=== PATIENT | male | born 1975 | race Two or more races ===

== ENCOUNTER 2018-05-14 09:46 | Emergency (ER) | payer OTHER ==
[~2018-05-14] VITALS: Ht 154.9 cm; Wt 90.7 kg
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
[2018-05-14 11:44] VITALS: BP 150/91
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
== END 2018-05-14 11:44 | disposition home or self-care (01) ==
LOC: ER 09:46
DX: S02.2XXA Fracture of nasal bones, initial encounter for closed fracture (principal); V49.88XA Car occupant (driver) (passenger) injured in other specified transport accidents, initial encounter; Y93.89 Activity, other specified; Y92.488 Other paved roadways as the place of occurrence of the external cause; Y99.8 Other external cause status
CPT/HCPCS: 70450; 70486; 99284

== ENCOUNTER → 2018-12-05 | Outpatient (CLI) | payer OTHER ==
--- NOTE | 2018-12-05 11:09 | CARD ---
MR#: [id number] Date of Study: 12/05/2018 Ordering Physician: NELLIE GIBSON, Referring Physician: NELLIE GIBSON, Tech: Marisol Khan [facility] APPROVED REPORT EXAM: Two-dimensional and M-mode echocardiogram with Doppler and color Doppler. Other Information Quality : Technically LimitedHR: 90bpm Rhythm : NSRTechnically limited study due to body habitus. INDICATION Chest Pain 2D DIMENSIONS RVDd2.9 (2.9-3.5cm)Left Atrium(2D)3.0 (1.6-4.0cm) IVSd1.4 (0.7-1.1cm)Aortic Root(2D)3.2 (2.0-3.7cm) LVDd4.2 (3.9-5.9cm)LVOT Diameter2.1 (1.8-2.4cm) PWd1.2 (0.7-1.1cm)LVDs3.0 (2.5-4.0cm) FS (%) 29.2 %SV45.5 ml M-Mode DIMENSIONS Left Atrium(MM)3.84 (2.5-4.0cm)Aortic Root3.43 (2.2-3.7cm) Aortic Valve AoV Peak Pierre.119.8cm/sAoV VTI24.1cm AO Peak GR.5.7mmHgLVOT Peak Pierre.113.0cm/s AO Mean GR.4mmHgAVA (VMAX)3.37cm2 YAW (VTI)3.40cm2 Mitral Valve MV E Dnhijesf61.0cm/sMV DECEL [id number] MV A Tjgtfmhk26.3cm/sE/A Ratio1.2 MV A [id number] Pulmonary Valve PV Peak Vzmazcob422.8cm/s LEFT VENTRICLE The left ventricle is normal size. There is mild concentric left ventricular hypertrophy. The left ve ntricular systolic function is normal and the ejection fraction is within normal range. The Ejection Fraction is 55-60%. There is normal LV segmental wall motion. RIGHT VENTRICLE The right ventricle is normal size. There is normal right ventricular wall thickness. The right ventr icular systolic function is normal. ATRIA The left atrium size is normal. The right atrium size is normal. The interatrial septum is intact wit h no evidence for an atrial septal defect or patent foramen ovale as noted on 2-D or Doppler imaging. AORTIC VALVE The aortic valve is normal in structure and function. The aortic valve is trileaflet. Doppler and Col or Flow revealed no significant aortic regurgitation. There is no significant aortic valvular stenosi s. There is no aortic valvular vegetation. MITRAL VALVE The mitral valve is normal in structure and function. There is no evidence of mitral valve prolapse. There is no mitral valve stenosis. Doppler and Color Flow revealed no mitral valve regurgitation note d. TRICUSPID VALVE The tricuspid valve is normal in structure and function. Doppler and Color Flow revealed trace tricus pid regurgitation. There is no tricuspid valve prolapse or vegetation. There is no tricuspid valve st enosis. PULMONIC VALVE The pulmonic valve is not well visualized. GREAT VESSELS The aortic root is normal in size. The ascending aorta is normal in size. The IVC was not visualized. PERICARDIAL EFFUSION There is no evidence of significant pericardial effusion. Critical Notification Critical Value: No <Conclusion> The left ventricle is normal size. The left ventricular systolic function is normal and the ejection fraction is within normal range. The Ejection Fraction is 55-60%. There is mild concentric left ventricular hypertrophy. There is no significant aortic valvular stenosis. Doppler and Color Flow revealed no significant aortic regurgitation. Doppler and Color Flow revealed no mitral valve regurgitation noted. Doppler and Color Flow revealed trace tricuspid regurgitation. Signed by : Luis Antonio Nice MD Electronically Approved : 12/05/2018 11:09:04
== END | disposition home or self-care (01) ==
LOC: ECHO 09:00
PROVIDERS: ATTEND Internal Medicine Cardiovascular Disease
DX: I51.7 Cardiomegaly (principal)
CPT/HCPCS: 93306

== ENCOUNTER → 2018-12-13 | Outpatient (CLI) | payer OTHER ==
--- NOTE | 2018-12-13 17:57 | RAD ---
CHEST PA LATERAL Clinical indications: Cough for 3 months COMPARISON: None available. Findings: No acute lung infiltrate or pleural effusion or pulmonary edema or lung mass or pneumothorax is seen. The heart size, pulmonary vasculature, mediastinum and both [place] are unremarkable. The osseous structures appear intact. Impression: No acute radiographic abnormality is seen. Electronically signed by: Arthur Ruiz MD (12/13/2018 5:55 PM) [place] [id number]
== END | disposition home or self-care (01) ==
LOC: RAD 11:56
PROVIDERS: ATTEND Internal Medicine Critical Care Medicine
DX: R05 Cough (principal)
CPT/HCPCS: 71046

== ENCOUNTER 2019-08-02 21:19 | Emergency (ER) | payer SELFPAY ==
[~2019-08-02] VITALS: Ht 165.1 cm; Wt 104.3 kg
[2019-08-03 00:35] VITALS: BP 167/80
[2019-08-03] MEDS ORDERED: CLOT15CR5 TP (01:22)
--- NOTE | 2019-08-03 01:23 | PHYS DOC ---
Past Medical History Past Medical History: No Pertinent History (AMMY BRISENO APRN) Past Surgical History: No Surgical History (AMMY BRISENO APRN) Alcohol Use: Occasionally Drug Use: None (AMMY BRISENO APRN) Attending Signature I have participated in the care of this patient and I have reviewed and agree with all pertinent clinical information above including history, exam, and recommendations. (JASSI GUERRIER MD) Adult General Chief Complaint Chief Complaint: FOOT INJURY PAIN HPI HPI Patient is a 44 year old male who reports he had been walking at home 3 days ago, barefoot, when he stepped on a screw that was in a board. Patient reports he has had some continued pain, and feels like there was still something inside the bottom of his foot, mid foot. States he has been able to walk on it, just has little discomfort. States he has no some cracking in his left foot, which he does not know the cause of that is. States he has not tried putting medications on his feet, particularly any medications. Denies any recent fever. Does state he does not have any idea when his last tetanus shot was. (AMMY BRISENO APRN) Review of Systems Review of Systems Constitutional: Denies fever or chills [] Eyes: Denies change in visual acuity, redness, or eye pain [] Cardiovascular: No additional information not addressed in HPI [] Musculoskeletal: Denies back pain or joint pain complains of pain to bottom of right foot.[] Integument: Denies rash or skin lesions complains of cracking to bottom of left foot, near heel[] Neurologic: Denies headache, focal weakness or sensory changes [] Endocrine: Denies polyuria or polydipsia [] All other systems were reviewed and found to be within normal limits, except as documented in this note. (AMMY BRISENO APRN) Current Medications Current Medications Current Medications Medications (Trade) Dose Ordered Sig/Toni Start Time Stop Time Status Last Admin Dose Admin Diphtheria/ Tetanus/Acell Pertussis (Boostrix) 0.5 ml ONCE ONCE 08/03/19 01:30 08/03/19 01:31 DC 08/03/19 01:38 0.5 ML Ibuprofen (Motrin) 600 mg 1X ONCE 08/03/19 01:30 08/03/19 01:31 DC 08/03/19 01:36 600 MG (FAREED,JASSI W MD) Allergies Allergies Allergies Coded Allergies Type Severity Reaction Last Updated Verified No Known Drug Allergies 08/03/19 No (JASSI GUERRIER MD) Physical Exam Physical Exam Constitutional: Well developed, well nourished, no acute distress, non-toxic appearance. Conversation in no apparent distress or discomfort [] HENT: Normocephalic, atraumatic, bilateral external ears normal, oropharynx moist, no oral exudates, nose normal. [] Skin: Warm, dry, no erythema, no rash. Puncture noted to mid foot of right foot, with scab in place. Is cracking noted to posterior heels of bilateral feet, no active bleeding. Minimal tenderness noted. No foreign bodies noted,[] Extremities: No tenderness, no cyanosis, no clubbing, ROM intact, no edema. Full ROM to feet noted[] Neurologic: Alert and oriented X 3, normal motor function, normal sensory function, no focal deficits noted. [] Psychologic: Affect normal, judgement normal, mood normal. [] (AMMY BRISENO APRN) Current Patient Data Vital Signs Vital Signs Date Time Temp Pulse Resp B/P (MAP) Pulse Ox O2 Delivery O2 Flow Rate FiO2 08/03/19 00:35 98.1 89 18 167/80 (109) 99 Room Air 98.1 (JASSI GUERRIER MD) EKG EKG [] (AMMY BRISENO APRN) Radiology/Procedures Radiology/Procedures X ray of foot with no noted fracture or foreign body mid-foot, per Dr Guerrier, does note small foreign body potentially at distal end of right foot. [] (AMMY BRISENO APRN) Course & Med Decision Making Course & Med Decision Making Pertinent Labs and Imaging studies reviewed. (See chart for details) [Discussed findigns without noted foreign body in foot. Discussed cracking of feet likely due to his use of alcohol and peroxide, plus walking in home with bleach on the floors. Advised patient to not use bleach on his feet. Also advise cracking likely resulting from tinea widespread to feet Will provide Rx for antifungal. Patient to follow up with Dr Jaime for tinea to great toe left foot. Will update tetanus here] (AMMY BRISENO APRN) Dragon Disclaimer Dragon Disclaimer This electronic medical record was generated, in whole or in part, using a voice recognition dictation system. (AMMY BRISENO APRN) Departure Departure Impression: Primary Impression: Puncture wound of foot without foreign body Additional Impression: Tinea pedis of both feet Disposition: HOME, SELF-CARE Condition: GOOD Referrals: DEANDRE JAIME MD (PCP) Patient Instructions: Athlete's Foot Additional Instructions: As we discussed, do not put bleach on your feet. Do not put alcohol and peroxide together on your feet. The cracking is likely related to a fungus on your feet, and it is worsened by using caustic products like bleach and alcohol. Try to wear your shoes at home to prevent stepping on anything else. Scripts Clotrimazole/Betamethasone Dip (CLOTRIMAZOLE-BETAMETHASONE CRM) 15 Gm Cream..g. 1 ALAN TP BID, #30 GM 1 Refill Prov: AMMY BRISENO APRN 08/03/19 Problem Qualifiers Primary Impression: Puncture wound of foot without foreign body Encounter type: initial encounter Laterality: right Qualified Codes: S91.331A - Puncture wound without foreign body, right foot, initial encounter AMMY BRISENO APRN Aug 03, 2019 01:22 JASSI GUERRIER MD Aug 03, 2019 02:40
[2019-08-03] MEDS ORDERED: IBUPROFEN 200 MG TABLET. PO ONE (01:30)
[2019-08-03] MEDS ORDERED: DIPHTH,PERTUSS(ACELL),TET TOX 0.5 ML DISP.SYRIN. VAX IM ONE (01:30)
--- NOTE | 2019-08-03 04:29 | RAD ---
Exam: Right foot 2 views INDICATION: Puncture wound TECHNIQUE: Frontal and lateral views the right foot Comparisons: None FINDINGS: Soft tissue swelling surrounding the right foot. No acute osseous abnormality Joint spaces are well-maintained. 2 mm hyperdensity seen best on lateral view underlying the digits. IMPRESSION: Soft tissue swelling at the level of the forefoot without underlying osseous abnormality. There is a 2 mm hyperdense focus seen along the plantar aspect of the digits on lateral view, may relate to foreign body. Correlate with physical exam. Electronically signed by: Elisabet Lewis MD (08/03/2019 4:26 AM) [facility]
== END 2019-08-03 01:40 | disposition home or self-care (01) ==
LOC: ER 21:19
DX: S91.331A Puncture wound without foreign body, right foot, initial encounter (principal); B35.3 Tinea pedis; W26.8XXA Contact with other sharp object(s), not elsewhere classified, initial encounter; Y93.89 Activity, other specified; Y92.89 Other specified places as the place of occurrence of the external cause; Y99.8 Other external cause status
CPT/HCPCS: 73620; 90471; 90715; 99284

== ENCOUNTER 2020-01-16 16:44 | Emergency (ER) | payer SELFPAY ==
[~2020-01-16] VITALS: Ht 165.1 cm; Wt 113.6 kg
[~2020-01-16 16:44] MED LIST: CLOT15CR5 TP
[2020-01-16 17:41] LABS: BILIRUBIN,URINE NEGATIVE (NEG); CLARITY,URINE CLOUDY; COLOR,URINE YELLOW; NITRITE,URINE NEGATIVE (NEG); PROTEIN,URINE NEGATIVE (NEG-TRACE)
[2020-01-16] MEDS ORDERED: IV NORMAL SALINE 1000ML BAG 1,000 ML IV ONE (17:45)
[2020-01-16 18:01] LABS: BASO # 0.1 x10^3/uL (0.0-0.2); BASO % 1 % (0-3); EOS # 0.1 x10^3/uL (0.0-0.7); EOS % 1 % (0-3); HEMATOCRIT 41.6 % (39.0-53.0); HEMOGLOBIN 14.8 g/dL (13.0-17.5); LYMPH # 1.8 x10^3/uL (1.0-4.8); LYMPH % 17 % (24-48); MEAN CORPUSCULAR HEMOGLOBIN 31 pg (25-35); MEAN CORPUSCULAR HGB CONC 36 g/dL (31-37); MEAN CORPUSCULAR VOLUME 87 fL (79-100); MONO # 0.8 x10^3/uL (0.0-1.1); MONO % 7 % (0-9); NEUT # 8.1 x10^3/uL (1.8-7.7); NEUT % 74 % (31-73); PLATELET COUNT 207 x10^3/uL (140-400); RED BLOOD COUNT 4.78 x10^6/uL (4.30-5.70); RED CELL DISTRIBUTION WIDTH 13.2 % (11.5-14.5); WHITE BLOOD COUNT 10.9 x10^3/uL (4.0-11.0)
[2020-01-16 18:05] LABS: BACTERIA,URINE 0 /HPF (0-FEW); RBC,URINE OCC /HPF (0-2)
[2020-01-16 18:09] LABS: CALCIUM 8.6 mg/dL (8.5-10.1); CREATININE 1.1 mg/dL (0.7-1.3); GFR 72.7; POTASSIUM 4.2 mmol/L (3.5-5.1)
[2020-01-16 18:15] LABS: ALBUMIN 3.4 g/dL (3.4-5.0); ALBUMIN/GLOBULIN RATIO 0.9 (1.0-1.7); TOTAL BILIRUBIN 1.1 mg/dL (0.2-1.0); TOTAL PROTEIN 7.1 g/dL (6.4-8.2)
[2020-01-16] MEDS ORDERED: cefTRIAXone IM 250 MG VIAL IM ONE (18:15)
[2020-01-16] MEDS ORDERED: KETOROLAC 15 MG/ML VIAL. IVP ONE (18:15)
[2020-01-16] MEDS ORDERED: AZITHROMYCIN 250 MG TABLET. PO ONE (18:15)
--- NOTE | 2020-01-16 18:42 | PHYS DOC ---
Past Medical History Past Medical History: TB Additional Past Medical Histor: TREATED FOR TB 14 YRS AGO (DEANDRE GLOVER DO) Past Surgical History: No Surgical History (DEANDRE GLOVER DO) Smoking Status: Never Smoker Alcohol Use: Rarely Drug Use: None (DEANDRE GLOVER DO) General Adult EDM: Chief Complaint: TESTICULAR PAIN OR INJURY HPI: HPI: Patient is a 44 year old male presents with report of 1 week history of progressive pain and swelling to lesion at base of penis and to scrotum. Reports he recently shaved his pubic area and now has several pustules. Reports concern that it might be an parasite infection because he also found some "worms" in his laundry basket and down in his basement. Denies penile discharge. Denies fever/chills. Denies known exposure to STDs. (DEANDRE GLOVER DO) Review of Systems: Review of Systems: Constitutional: Denies fever or chills Eyes: Denies redness or eye pain HENT: Denies nasal congestion or sore throat Respiratory: Denies cough or shortness of breath Cardiovascular: Denies chest pain or palpitations GI: Denies abdominal pain, nausea, or vomiting : Denies dysuria or penile discharge; reports penile and scrotal swelling and pain Musculoskeletal: Denies back pain or joint pain Integument: Reports pustular rash to pubic area and skin lesion to base of penis with swelling Neurologic: Denies headache, focal weakness or sensory changes Complete systems were reviewed and found to be within normal limits, except as documented in this note. (DEANDRE GLOVER DO) Current Medications: Current Medications Medications (Trade) Dose Ordered Sig/Otni Start Time Stop Time Status Last Admin Dose Admin Azithromycin (Zithromax) 1,000 mg 1X ONCE 01/16/20 18:15 01/16/20 18:16 DC 01/16/20 18:06 1,000 MG Ceftriaxone Sodium (Rocephin Im) 250 mg 1X ONCE 01/16/20 18:15 01/16/20 18:16 DC 01/16/20 18:05 250 MG Ketorolac Tromethamine (Toradol 15mg Vial) 15 mg 1X ONCE 01/16/20 18:15 01/16/20 18:16 DC 01/16/20 18:03 15 MG Sodium Chloride 1,000 ml @ 1,000 mls/hr 1X ONCE 01/16/20 17:45 01/16/20 18:44 01/16/20 18:05 1,000 MLS/HR (DEANDRE LGOVER DO) Allergies: Allergies: Allergies Coded Allergies Type Severity Reaction Last Updated Verified No Known Drug Allergies 08/03/19 No (DEANDRE GLOVER DO) Physical Exam: PE: Constitutional: Well developed, well nourished, uncomfortable, non-toxic appearance HENT: Normocephalic, atraumatic Eyes: Conjunctiva normal, no discharge Neck: Normal range of motion, no tenderness, supple Lungs & Thorax: No respiratory distress, equal chest rise and fall Abdomen: Soft, no tenderness Skin: Warm, dry, no erythema, scattered pustular rash to pubic region which appears consistent for folliculitis : Uncircumcised penis, no penile discharge, lesion noted to base of penis with surrounding induration and tender to palpation, cremasteric reflex intact, mild scrotal edema noted Back: No tenderness, no CVA tenderness Extremities: No tenderness, ROM intact, no edema Neurologic: Alert and oriented X 3, no focal deficits noted Psychologic: Affect normal, judgment normal (DEANDRE GLOVER DO) Current Patient Data: Labs: Laboratory Tests Test 01/16/20 17:33 01/16/20 17:49 Urine Collection Type Unknown Urine Color Yellow Urine Clarity Cloudy Urine pH 6.0 (<5.0-8.0) Urine Specific [place] 1.020 (1.000-1.030) Urine Protein Negative mg/dL (NEG-TRACE) Urine Glucose (UA) Negative mg/dL (NEG) Urine Ketones (Stick) 15 mg/dL (NEG) Urine Blood Negative (NEG) Urine Nitrite Negative (NEG) Urine Bilirubin Negative (NEG) Urine Urobilinogen Dipstick 1.0 mg/dL (0.2 mg/dL) Urine Leukocyte Esterase Negative (NEG) Urine RBC Occ /HPF (0-2) Urine WBC 1-4 /HPF (0-4) Urine Bacteria 0 /HPF (0-FEW) Urine Mucus Slight /LPF White Blood Count 10.9 x10^3/uL (4.0-11.0) Red Blood Count 4.78 x10^6/uL (4.30-5.70) Hemoglobin 14.8 g/dL (13.0-17.5) Hematocrit 41.6 % (39.0-53.0) Mean Corpuscular Volume 87 fL (79-100) Mean Corpuscular Hemoglobin 31 pg (25-35) Mean Corpuscular Hemoglobin Concent 36 g/dL (31-37) Red Cell Distribution Width 13.2 % (11.5-14.5) Platelet Count 207 x10^3/uL (140-400) Neutrophils (%) (Auto) 74 % (31-73) H Lymphocytes (%) (Auto) 17 % (24-48) L Monocytes (%) (Auto) 7 % (0-9) Eosinophils (%) (Auto) 1 % (0-3) Basophils (%) (Auto) 1 % (0-3) Neutrophils # (Auto) 8.1 x10^3/uL (1.8-7.7) H Lymphocytes # (Auto) 1.8 x10^3/uL (1.0-4.8) Monocytes # (Auto) 0.8 x10^3/uL (0.0-1.1) Eosinophils # (Auto) 0.1 x10^3/uL (0.0-0.7) Basophils # (Auto) 0.1 x10^3/uL (0.0-0.2) Sodium Level 134 mmol/L (136-145) L Potassium Level 4.2 mmol/L (3.5-5.1) Chloride Level 99 mmol/L (98-107) Carbon Dioxide Level 24 mmol/L (21-32) Anion Gap 11 (6-14) Blood Urea Nitrogen 27 mg/dL (8-26) H Creatinine 1.1 mg/dL (0.7-1.3) Estimated GFR (Cockcroft-Gault) 72.7 BUN/Creatinine Ratio 25 (6-20) H Glucose Level 94 mg/dL (70-99) Lactic Acid Level 1.2 mmol/L (0.4-2.0) Calcium Level 8.6 mg/dL (8.5-10.1) Magnesium Level 2.0 mg/dL (1.8-2.4) Total Bilirubin 1.1 mg/dL (0.2-1.0) H Aspartate Amino Transferase (AST) 35 U/L (15-37) Alanine Aminotransferase (ALT) 40 U/L (16-63) Alkaline Phosphatase 59 U/L (46-116) Total Protein 7.1 g/dL (6.4-8.2) Albumin 3.4 g/dL (3.4-5.0) Albumin/Globulin Ratio 0.9 (1.0-1.7) L Laboratory Tests 01/16/20 17:49 Laboratory Tests 01/16/20 17:49 Vital Signs: Vital Signs Date Time Temp Pulse Resp B/P (MAP) Pulse Ox O2 Delivery O2 Flow Rate FiO2 01/16/20 17:00 98.1 98 20 115/58 (77) 99 Room Air 98.1 (DEANDRE GLOVER DO) EKG: EKG: [] (DEANDRE GLOVER DO) Radiology/Procedures: Radiology/Procedures: [] (DEANDRE GLOVER DO) Radiology/Procedures: IMAGING REPORT Signed PATIENT: LELA ADRIANOUNT: [id number] : 1975 LOCATION: ER AGE: 44 SEX: M EXAM STATUS: REG ER ORD. PHYSICIAN: DEANDRE GLOVER DO REASON: swelling, possible abscess at base of penis PROCEDURE: TESTICULAR/SCROTUM Exam: Ultrasound scrotum Indication: Swelling, possible abscess the base of the penis Technique: Real-time grayscale and color Doppler images of the scrotum were obtained by the department rn occupational. Comparisons: None FINDINGS: Right testicle measures 4.1 x 2.7 x 2.2 cm. Left testicle measures 4.2 x 2.5 x 2.1 cm. Vascular flow identified within the testicles bilaterally. In the area of concern at the base of the penis no fluid collection is identified. IMPRESSION: 1. Normal sonographic appearance of the testicles. No evidence of testicular torsion. 2. No fluid collection identified at the area of concern at the base of the penis to suggest abscess. Electronically signed by: Elisabet Gillette MD (01/16/2020 7:14 PM) [id number] DICTATED and SIGNED BY: ELISABET GILLETTE MD DATE: 01/16/20 1914 Impression: Patient seen and evaluated by myself-has a painful ulcer at the base of his penis. Was treated for routine STDs with azithromycin in the ED. Syphilis screen is negative. Urinalysis unremarkable. Labs show no leukocytosis. Patient afebrile and well-appearing. He does have vesiculitis over his mons pubis region with some mild associated erythema around these regions, patient did recently shave. Was discouraged from shaving. Strict ED return precautions were given for fever chills, worsening pelvic pain or spreading rash (educated on strict return w/fourniers-aware of life threatening nature). DC home with Keflex and doxycycline to cover staph, strep and other STDs. Was given PMD referral information. Encouraged repeat exam within the next 7 days. All patient's questions were answered and he was stable at time of discharge. (HEMA RIVERO DO) Course & Med Decision Making: Course & Med Decision Making Pertinent Labs and Imaging studies reviewed. (See chart for details) Patient presents with report of penile lesion as well as pustular rash to pubic area. Afebrile. Labs obtained and pending. Chlamydia/gonorrhea cultures ordered. Syphilis testing also ordered. Empiric antibiotic provided. Ultrasound also ordered and pending at this time. Pain addressed. Sign out given to Dr. Rivero for further evaluation and treatment. Discussed current findings and plan with patient, who acknowledges understanding and agreement. (DEANDRE GLOVER DO) Dragon Disclaimer: Dragon Disclaimer: This electronic medical record was generated, in whole or in part, using a voice recognition dictation system. (DEANDRE GLOVER DO) Departure Departure Impression: Primary Impression: Penile lesion Additional Impression: Folliculitis Disposition: 01 HOME, SELF-CARE Condition: STABLE Referrals: NO PCP (PCP) Patient Instructions: Folliculitis Scripts Doxycycline Hyclate (DOXYCYCLINE HYCLATE) 100 Mg Capsule 1 CAP PO BID for 14 Days, #28 CAP Prov: HEMA RIVERO DO 01/16/20 Cephalexin (KEFLEX) 500 Mg Capsule 2 CAP PO Q12HR, #40 CAP Prov: HEMA RIVERO DO 01/16/20 Justicifation of Admission Dx: Justifications for Admission: Justification of Admission Dx: N/A (DEANDRE GLOVER DO) Justification of Admission Dx: N/A (HEMA RIVERO DO) DEANDRE GLOVER DO Jan 16, 2020 18:42 HEMA RIVERO DO Jan 16, 2020 21:49
--- NOTE | 2020-01-16 19:17 | RAD ---
Exam: Ultrasound scrotum Indication: Swelling, possible abscess the base of the penis Technique: Real-time grayscale and color Doppler images of the scrotum were obtained by the department electronic technologist. Comparisons: None FINDINGS: Right testicle measures 4.1 x 2.7 x 2.2 cm. Left testicle measures 4.2 x 2.5 x 2.1 cm. Vascular flow identified within the testicles bilaterally. In the area of concern at the base of the penis no fluid collection is identified. IMPRESSION: 1. Normal sonographic appearance of the testicles. No evidence of testicular torsion. 2. No fluid collection identified at the area of concern at the base of the penis to suggest abscess. Electronically signed by: Elsiabet Lewis MD (01/16/2020 7:14 PM) [id number]
[2020-01-16] MEDS ORDERED: CEPH-264 PO (22:00)
[2020-01-16] MEDS ORDERED: DOXY100C2 PO (22:00)
[2020-01-16 22:03] VITALS: BP 127/67
== END 2020-01-16 22:25 | disposition home or self-care (01) ==
LOC: ER 16:44
DX: N48.89 Other specified disorders of penis (principal); L73.9 Follicular disorder, unspecified; R21 Rash and other nonspecific skin eruption; R60.0 Localized edema; A15.9 Respiratory tuberculosis unspecified
CPT/HCPCS: 76870; 80053; 81001; 83605; 83735; 85025; 86592; 87491; 87591; 96372; 96374; 99285; J0696; J1885; J7030; 36415

== ENCOUNTER 2021-12-13 08:44 | Emergency (ER) | payer SELFPAY ==
[~2021-12-13] VITALS: Ht 165.1 cm; Wt 135.1 kg
[~2021-12-13 08:44] MED LIST changes: +CEPH-264 PO; +DOXY100C3 PO
[2021-12-13] MEDS ORDERED: LIDOCAINE 1%/EPI 1:100,000 20 ML VIAL. INJ ONE (09:15)
--- NOTE | 2021-12-13 09:18 | PHYS DOC ---
Past Medical History Past Medical History: TB Additional Past Medical Histor: TREATED FOR TB 14 YRS AGO Past Surgical History: No Surgical History Smoking Status: Never Smoker Alcohol Use: Rarely Drug Use: None General Adult HPI: HPI: Patient is a 46-year-old male who presents today with a laceration to his left wrist. 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 Patient states his symptoms that happened he wrapped that area up with a electrical type tape finished what he was doing and then come to the emergency department. Patient states his last tetanus shot was between 1 and 3 years ago. Review of Systems: Review of Systems: Constitutional: Denies fever or chills. [] Eyes: Denies change in visual acuity. [] HENT: Denies nasal congestion or sore throat. [] Respiratory: Denies cough or shortness of breath. [] Cardiovascular: Denies chest pain or edema. [] GI: Denies abdominal pain, nausea, vomiting, bloody stools or diarrhea. [] : Denies dysuria. [] Musculoskeletal: Denies back pain or joint pain. [] Integument: Laceration to left wrist Neurologic: Denies headache, focal weakness or sensory changes. [] Endocrine: Denies polyuria or polydipsia. [] Lymphatic: Denies swollen glands. [] Psychiatric: Denies depression or anxiety. [] Heart Score: C/O Chest Pain: No Risk Factors: Risk Factors: DM, Current or recent (<one month) smoker, HTN, HLP, family history of CAD, obesity. Risk Scores: Score 0 - 3: 2.5% MACE over next 6 weeks - Discharge Home Score 4 - 6: 20.3% MACE over next 6 weeks - Admit for Clinical Observation Score 7 - 10: 72.7% MACE over next 6 weeks - Early Invasive Strategies Current Medications: Current Medications Medications (Trade) Dose Ordered Sig/Toni Start Time Stop Time Status Last Admin Dose Admin Lidocaine/ Epinephrine (LIDOCAINE 1%-EPI 1:100,000 Multi-Dose) 20 ml 1X ONCE 12/13/21 09:15 12/13/21 09:16 UNV Allergies: Allergies: Allergies Coded Allergies Type Severity Reaction Last Updated Verified No Known Drug Allergies 08/03/19 No Physical Exam: PE: Constitutional: Well developed, well nourished, no acute distress, non-toxic appearance. [] HENT: Normocephalic, atraumatic, bilateral external ears normal, oropharynx moist, no oral exudates, nose normal. [] Eyes: PERRLA, EOMI, conjunctiva normal, no discharge. [] Neck: Normal range of motion, no tenderness, supple, no stridor. [] Cardiovascular:Heart rate regular rhythm, no murmur [] Lungs & Thorax: Bilateral breath sounds clear to auscultation [] Abdomen: Bowel sounds normal, soft, no tenderness, no masses, no pulsatile masses. [] Skin: lacerations left wrist Warm, dry, no erythema, no rash. [] Back: No tenderness, no CVA tenderness. [] Extremities: left hand normal ROM and strength in hand, sensory and vascular intact, radial pulse 2 +. Neurologic: Alert and oriented X 3, normal motor function, normal sensory function, no focal deficits noted. [] Psychologic: Affect normal, judgement normal, mood normal. [] EKG: EKG: [] Radiology/Procedures: Radiology/Procedures: Indication: Laceration left forearm Procedure: Patient was placed in the supine position, lidocaine 1% with epinephrine 8 mL was injected around the wound after appropriate anesthetizing was obtained area was irrigated with 120 mL of normal saline, area was cleansed with Betadine solution 8 interrupted sutures were placed using 4-0 Ethilon closing the wound. Dressing was applied by nursing staff the patient was placed in the appropriate position and anesthesia around the [LAC WAS/WERE] [ANESTHESIA]. The area was then [CLEANSED/DEBRIDED]. The laceration was [LAC CLOSURE]. [ADDITIONAL LACS] The wound area was then dressed with [WOUND COVERING]. Total repaired wound length: 6cm The patient tolerated the procedure well Complications: none Course & Med Decision Making: Course & Med Decision Making Pertinent Labs and Imaging studies reviewed. (See chart for details) Sutures were placed patient is advised to cleanse the wound twice daily with mild soap and water watching for any signs and symptoms of infection, sutures are to be removed in 7 to 10 days he can either return here to the emergency department or follow-up with his primary care physician to have those removed. Patient will also be given a prescription for cephalexin due to the dirty nature of the wound and the type of material that was used. Dragon Disclaimer: Dragon Disclaimer: This electronic medical record was generated, in whole or in part, using a voice recognition dictation system. Departure Departure Impression: Primary Impression: Laceration of wrist, left Qualified Codes: S61.512A - Laceration without foreign body of left wrist, initial encounter Disposition: HOME / SELF CARE / HOMELESS Condition: STABLE Referrals: NO PCP (PCP) Patient Instructions: Laceration Care, Adult Additional Instructions: Cephalexin 500 mg 1 tablet twice daily for 10 days Tylenol and/or ibuprofen as needed for pain Keep wound clean and dry, due to the nature of your work I recommend covering it while at work. Cleanse the wound twice daily with mild soap and water watching for any signs and symptoms of infection which may include redness, warmth, drainage, increased pain, swelling or development of a fever Return here to the emergency department or follow-up with your primary care physician or one of the listed clinics below in 7 to 10 days to have sutures removed. [facility] [address] [place] [address] [facility] [address] [place] [address] [facility] [address] [place] [address] [facility] [address] [place] [address] [facility] [address] [place] [address] [facility] [address] [place] [address] [facility] [address] [place] [address] [facility] [address] [place] [address] [facility] [address] [place] [address] [facility] [address] [place] [address] Scripts Cephalexin (CEPHALEXIN) 500 Mg Tablet 1 CAP PO BID, #20 CAP Prov: GARFIELD MAGANA CERTIFIED NURSES' AIDE 12/13/21 GARFIELD MAGANA CERTIFIED NURSES' AIDE December 13, 2021 09:18
[2021-12-13] MEDS ORDERED: CEPH500T PO (10:07)
[2021-12-13 11:17] VITALS: BP 168/84
== END 2021-12-13 11:15 | disposition home or self-care (01) ==
LOC: ER 08:44
DX: S61.512A Laceration without foreign body of left wrist, initial encounter (principal); W26.8XXA Contact with other sharp object(s), not elsewhere classified, initial encounter; Y93.89 Activity, other specified; Y92.89 Other specified places as the place of occurrence of the external cause; Y99.8 Other external cause status
CPT/HCPCS: 12002; 99283; J3490